=== PATIENT | male | born 1970 | race Caucasian/White ===

== ENCOUNTER 2017-05-09 06:03 | Outpatient (CLI) | payer OTHER ==
[~2017-05-09] VITALS: Ht 182.9 cm; Wt 99.8 kg
[~2017-05-09 06:03] MED LIST: BLOOD PRESSURE
[2017-05-09] MEDS ORDERED: BENA1TAB15 PO (09:58)
== END 2017-05-09 10:02 ==
LOC: PREOP 06:03
PROVIDERS: ATTEND Internal Medicine
DX: Z01.818 Encounter for other preprocedural examination (principal); Z12.11 Encounter for screening for malignant neoplasm of colon; Z80.0 Family history of malignant neoplasm of digestive organs

== ENCOUNTER 2017-05-12 07:54 | Day surgery (SDC) | payer BC, OTHER ==
[~2017-05-12] VITALS: Ht 182.9 cm; Wt 99.8 kg
[~2017-05-12 07:54] MED LIST changes: +BENA1TAB15 PO
--- OUTSIDE RECORDS SUMMARY | 2017-05-12 07:57 | XMS REPORT | Continuity of Care Document ---
Author Author [facility] Organization [facility] Address Unknown Phone Unavailable Allergies Active Description Code Type Severity Reaction Onset Reported/Identified Relationship to Patient Clinical Status Yes No Known Drug Allergies [id number] Drug Allergy Unknown N/ A 11/04/2009 Medications Problems Procedures Results Encounters ACCT No. Visit Date/Time Discharge Status Pt. Type Provider Facility Loc./Unit Complaint [id number] 05/09/2017 06:03:00 2016 10:02:00 DIS Outpatient KOBE ARAGON MD [facility] PREOP COLONOSCOPY [id number] 06/21/2013 08:14:00 2013 23:59:59 CLS Outpatient [id number] 05/12/2017 07:54:00 ACT Outpatient KOBE ARAGON MD [facility] ENDO F/H COLON CA, SCREENING
[2017-05-12] MEDS ORDERED: 1/2 NS IV SOLUTION 1,000 ML IV STA (08:07)
[2017-05-12] MEDS ORDERED: fentaNYL INJECTION 100 MCG/2 ML AMP IVP PRN (08:15)
[2017-05-12] MEDS ORDERED: LIDOCAINE JELLY 2% (XYLOCAINE) 5 ML TUBE MM PRN (08:15)
[2017-05-12] MEDS ORDERED: MIDAZOLAM 2 MG/2 ML (VERSED) VIAL IVP PRN (08:15)
[2017-05-12 08:24] VITALS: BP 142/96
[2017-05-12] MEDS ORDERED: LIDOCAINE JELLY 2% (XYLOCAINE) 5 ML TUBE ONE (09:11)
--- NOTE | 2017-05-12 09:17 | Pre-Op Note & Conscious Sedat ---
Pre-Operative Progress Note H&P Reviewed The H&P was reviewed, patient examined and no changes noted. Date H&P Reviewed: May 12, 2017 Time H&P Reviewed: 09:10 Conscious Sedation Pre-Proced ASA Class: 2 Airway Mallampati Classification: ([place] appropriate class) I. II. III, IV Lungs Heart ASA score ASA 1: a normal healthy patient ASA 2: a patient with a mild systemic disease (mid diabetes, controlled hypertension, obesity ASA 3: a patient with a severe systemic disease that limits activity (angina , COPD, prior Myocardial infarction) ASA 4: a patient with an incapacitating disease that is a constant threat to life (CHF, renal failure) ASA 5: a moribund patient not expected to survive 24 hrs. (ruptured aneurysm) ASA 6: a declared brain patient whose organs are being harvested. For emergent operations, add the letter E after the classification Grade 2 Sedation Plan: Analgesia, Amnesia, Plan communicated to team members, Discussed options with patient/fam, Discussed risks with patient/fam Note The patient is an appropriate candidate to undergo the planned procedure, sedation, and anesthesia. The patient immediately re-assessed prior to indication. KOBE RAAGON MD May 12, 2017 09:17
[2017-05-12 09:50] VITALS: BP 165/102
[2017-05-12 10:45] VITALS: BP 165/102
[2017-05-12 10:50] VITALS: BP 142/101
--- NOTE | 2017-05-14 22:31 | OPERATIVE REPORT ---
DATE OF SERVICE: 05/12/2017 COLONOSCOPY SUMMARY The patient is a 47-year-old white male undergoing screening colonoscopy. He is deemed to be of higher than average risk as there is a family history for colon cancer. In this case being his father diagnosed in his 50s. The patient was placed in the left lateral decubitus position. Prior to undergoing colonoscopy, digital rectal evaluation was performed. Anal sphincterotome was normal and the perianal reflexes intact. No abnormalities, no additional inspection of anal canal or distal rectal vault. The prostate was normal size and anodular on digital inspection. The colonoscope was then inserted into the rectum under direct visualization advanced to the cecum. The cecum was identified by identification of the ileocecal valve and the cecal strap. Photographic documentation was obtained. Careful inspection was made as the colonoscope was withdrawn. The patient tolerated the procedure well. FINDINGS: There was no evidence for internal or external hemorrhoids and the rectum and sigmoid colon were unremarkable. No evidence for diverticular disease was noted. Present in the descending colon was diminutive 4 mm sessile adenomatous polyp. It was photographed and biopsied and ablated, submitted for histopathology with no subsequent blood loss. The splenic flexure, transverse colon, hepatic flexure, ascending colon and cecum were unremarkable. ASSESSMENT: One 4 mm adenomatous appearing polyp was removed via hot forceps without blood loss in the mid descending colon. This was otherwise normal colonoscopy to the cecum. As long as there are no surprises on histopathology report, we will be abdicating repeat surveillance colonoscopy in 5 years considering this patient's family history. Job ID: [id number] DocumentID: [id number] Dictated Date: 05/14/2017 15:32:17 [employer] Complex Attendant Date: 05/14/2017 22:31:19 Dictated By: KOBE ARAGON MD
== END 2017-05-12 10:45 | disposition home or self-care (01) ==
LOC: ENDO 07:54
PROVIDERS: ATTEND Internal Medicine
DX: Z12.11 Encounter for screening for malignant neoplasm of colon (principal); Z80.0 Family history of malignant neoplasm of digestive organs; D12.4 Benign neoplasm of descending colon; I10 Essential (primary) hypertension; E88.81 Metabolic syndrome and other insulin resistance; Z79.899 Other long term (current) drug therapy

== ENCOUNTER → 2017-11-23 | Outpatient (CLI) | payer OTHER ==
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
== END ==
LOC: RAD 13:41
PROVIDERS: ATTEND Nurse Practitioner Family
DX: M25.462 Effusion, left knee (principal); M54.5 Low back pain; M54.6 Pain in thoracic spine; R41.0 Disorientation, unspecified; V89.2XXA Person injured in unspecified motor-vehicle accident, traffic, initial encounter
CPT/HCPCS: 72040; 72070; 73562

== ENCOUNTER → 2018-01-10 | Outpatient (CLI) | payer OTHER ==
--- NOTE | 2018-01-10 15:48 | Diagnostic Imaging Report ---
PROCEDURE: MRI left joint lower extremity without contrast. TECHNIQUE: Multiplanar, multisequence MR imaging of the left knee was performed without contrast. COMPARISON: None available. INDICATION: Left knee pain. Prior ACL reconstruction. FINDINGS: MENISCI Medial meniscus: Normal. Lateral meniscus: Complex tear in the lateral meniscus includes a horizontal cleavage tear in the body along with a near-complete radial free edge tear in the posterior horn near the root insertional fibers. No displaced meniscal fragments. LIGAMENTS ACL: Prior ACL reconstruction. The graft is intact and has a normal taut morphology. There are no features of roof impingement of the graft. The tibial and femoral tunnels are in good position. PCL: Intact. MCL: Intact. LCL: The lateral collateral ligamentous complex is intact. EXTENSOR MECHANISM The extensor mechanism is intact. CARTILAGE Medial compartment: Medial compartment articular cartilage is well preserved without focal high-grade chondromalacia. Lateral compartment: Low-grade partial-thickness articular cartilage loss and fissuring in the weightbearing aspect. There is a single focus of full-thickness chondral fissuring in the lateral tibial plateau with underlying subchondral bone marrow edema. Patellofemoral compartment: The patellofemoral articular cartilage is well preserved without high-grade chondromalacia. BONE No fracture, stress fracture or osteonecrosis. SOFT TISSUE Small knee joint effusion. No Townsend's cyst. IMPRESSION: 1. Complex tear of the lateral meniscus body and posterior horn. No displaced meniscal fragments. 2. ACL reconstruction with intact graft. 3. Focal full-thickness chondral fissuring in the lateral tibial plateau with underlying subchondral bone marrow edema. Dictated by: Dictated on workstation # [id number]
== END ==
LOC: RAD 12:51
PROVIDERS: ATTEND Family Medicine
DX: S83.272A Complex tear of lateral meniscus, current injury, left knee, initial encounter (principal); S86.812A Strain of other muscle(s) and tendon(s) at lower leg level, left leg, initial encounter
CPT/HCPCS: 73721

== ENCOUNTER 2018-02-17 13:01 | Observation (INO) | payer OTHER ==
[~2018-02-17] VITALS: Ht 182.9 cm; Wt 99.9 kg
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
--- OUTSIDE RECORDS SUMMARY | 2018-02-17 13:07 | XMS REPORT ---
Author Author VIC CHING [facility] Address [address] [place] [address] Care Team Providers Care Corporate Fitness Program Coordinator Name Role Phone VIC CHING Unavailable PROBLEMS Unknown Problems ALLERGIES No Information ENCOUNTERS Encounter Location Date Diagnosis [facility] [id number] [address] Apr, [facility] [id number] [address] Sep, [facility] [id number] [address] Sep, [facility] [id number], [place] [address] Sep, Benign essential HTN I10 IMMUNIZATIONS No Known Immunizations SOCIAL HISTORY Never Assessed REASON FOR VISIT Triage JStrasserRN PLAN OF CARE VITAL SIGNS Height 72 in 2017-04-25 Weight 222.2 lbs 2017-04-25 Temperature 97.9 degrees Fahrenheit 2017-04-25 Heart Rate 96 bpm 2017-04-25 Respiratory Rate 20 2017-04-25 BMI 30.13 kg/m2 2017-04-25 Blood pressure systolic 156 mmHg 2017-04-25 Blood pressure diastolic 100 mmHg 2017-04-25 MEDICATIONS Unknown Medications RESULTS No Results PROCEDURES No Known procedures INSTRUCTIONS MEDICATIONS ADMINISTERED No Known Medications MEDICAL (GENERAL) HISTORY Type Description Date Medical History hypertension Surgical History orthopedic surgery Surgical History ACL reconstruction 2011
[2018-02-17] MEDS ORDERED: KETOROLAC 30 MG/ML VIAL ONE (13:12)
[2018-02-17] MEDS ORDERED: SILVER SULFADIAZINE 50 GM CREAM ONE ×2 (13:55)
[2018-02-17] MEDS ORDERED: fentaNYL INJECTION 100 MCG/2 ML AMP ONE (14:13)
[2018-02-17] MEDS ORDERED: diphenhydrAMINE 50 MG/ML INJ (BENADRYL) ONE (14:19)
[2018-02-17] MEDS ORDERED: PROMETHAZINE INJ 25 MG/ML (PHENERGAN) AMP ONE (14:19)
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
[2018-02-17] MEDS ORDERED: fentaNYL INJECTION 100 MCG/2 ML AMP IVP ONE (14:30)
[2018-02-17] MEDS ORDERED: AMLO5TAB7 PO (14:43)
[2018-02-17] MEDS ORDERED: NALT50TA PO (14:44)
[2018-02-17] MEDS ORDERED: HYDROmorphone 2 MG/ML VIAL (DILAUDID) IV PRN ×2 (14:45→17:15)
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
[2018-02-17] MEDS ORDERED: Flexeril (16:22)
[2018-02-17 16:35] VITALS: BP 137/64
[2018-02-17] MEDS: HYDROmorphone 2 MG/ML VIAL (DILAUDID) IV PRN ×3 (17:39→22:29)
[2018-02-17] MEDS: NS IV 1000 ML 1,000 ML IV SCH (17:40)
[2018-02-17 19:40] VITALS: BP 135/81
[2018-02-18] VITALS: BP 135/80
[2018-02-18] MEDS: HYDROmorphone 2 MG/ML VIAL (DILAUDID) IV PRN ×2 (03:57→08:43)
[2018-02-18] MEDS: NS IV 1000 ML 1,000 ML IV SCH (03:57)
[2018-02-18 04:00] VITALS: BP 128/74
[2018-02-18 08:00] VITALS: BP 133/84
[2018-02-18] MEDS ORDERED: HYDR-3812 PO (10:19)
[2018-02-18] MEDS ORDERED: SILV20CR14 TP (10:22)
--- NOTE | 2018-02-18 10:22 | Discharge Inst-Simple/Standard ---
Discharge Inst-Standard Discharge Medications New, Converted or Re-Newed RX: RX on Chart Patient Instructions/Follow Up Plan of Care/Instructions/FU: Please continue dressing changes with Silvadene as Dr Hatch instructed. Please follow up with Dr Gutierrez next week to follow up this hospital stay and with Dr Hall in the wound care clinic. Activity as Tolerated: Yes Discharge Diet: No Restrictions Return to The Hospital For: Worsening pain, fever, purulent drainage from the worse, numbness or tingling in your legs, if you feel you are getting worse. DENIA ESTRADA MD Feb 18, 2018 10:22
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
[2018-02-18] MEDS: HYDROcodone/APAP 5 MG/325 MG (LORTAB) TAB PO PRN ×2 (10:34→14:24)
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
[2018-02-18 14:40] VITALS: BP 133/84
== END 2018-02-18 13:45 | disposition home or self-care (01) ==
LOC: EDUNIT# 13:01 → ER 13:03 → 4TH 15:55 → UNDOADMOB 15:55 → 4TH 16:35 → UNDODISOB 02-18 14:45
PROVIDERS: ADMIT Family Medicine; ATTEND Family Medicine
DX: T24.231A Burn of second degree of right lower leg, initial encounter (principal); T24.132A Burn of first degree of left lower leg, initial encounter; T31.0 Burns involving less than 10% of body surface; F10.11 Alcohol abuse, in remission; I10 Essential (primary) hypertension; M19.91 Primary osteoarthritis, unspecified site; X04.XXXA Exposure to ignition of highly flammable material, initial encounter; Z87.891 Personal history of nicotine dependence
CPT/HCPCS: 96374; 96375; G0378

== ENCOUNTER → 2018-02-23 | Outpatient (CLI) | payer OTHER ==
[~2018-02-23] MED LIST changes: +AMLO5TAB7 PO; +Flexeril; +HYDR-3812 PO; +HYDR25TA4 PO; +NALT50TA PO; +SILV20CR14 TP; +[UNRECOGNIZED DRUG - OTHER] PO
== END ==
LOC: WOUNDCARE 08:02
PROVIDERS: ATTEND Surgery
DX: T24.231A Burn of second degree of right lower leg, initial encounter (principal); X58.XXXA Exposure to other specified factors, initial encounter
CPT/HCPCS: 99214

== ENCOUNTER → 2018-03-02 | Outpatient (CLI) | payer SELFPAY | LOC: WOUNDCARE 08:53 | PROVIDERS: ATTEND Surgery | DX: T24.231A Burn of second degree of right lower leg, initial encounter (principal); X58.XXXA Exposure to other specified factors, initial encounter | CPT/HCPCS: 99212 ==

== ENCOUNTER 2018-03-05 02:44 | Emergency (ER) | payer SELFPAY ==
[~2018-03-05] VITALS: Ht 182.9 cm; Wt 99.9 kg
[~2018-03-05 02:44] MED LIST changes: -HYDR25TA4 PO; -[UNRECOGNIZED DRUG - OTHER] PO
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
[2018-03-05] MEDS ORDERED: NITROGLYCERIN 0.4 MG SL TABS BTL 25'S SL ONE (02:50)
[2018-03-05] MEDS ORDERED: NS IV 1000 ML 1,000 ML ONE (02:50)
[2018-03-05] MEDS ORDERED: ASPIRIN 81 MG CHEW (CHILDREN'S ASA) ONE (02:50)
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
[2018-03-05] MEDS ORDERED: ASPIRIN 81 MG CHEW (CHILDREN'S ASA) PO ONE (03:00)
[2018-03-05] MEDS ORDERED: NITROGLYCERIN 0.4 MG SL TABS BTL 25'S SL PRN (03:00)
--- NOTE | 2018-03-05 03:03 | ED Chest Pain ---
General Chief Complaint: Respiratory Problems Stated Complaint: DIZZY, L ARM NUMB Source: patient, spouse Exam Limitations: no limitations History of Present Illness Date Seen by Provider: Mar 05, 2018 Time Seen by Provider: 02:53 Initial Comments Patient presents to ER by private conveyance with his spouse with chief complaint that about an hour ago he started experiencing some pressure in his chest x-ray was pushing against it. He does not have a primary history of coronary artery disease. Never had a heart attack. No primary family history of coronary disease prior to 60. He quit smoking 13 years ago does not drink the past couple weeks and no history of recreational drug use. He does not have diabetes, hypercholesterolemia, hypothyroidism. He does take some medications for blood pressure. He's having a little shortness of breath. He denies anxiety or acid reflux. He took ibuprofen prior to the chest pain because his feet woke him up hurting from neuropathy. Allergies and Home Medications Allergies Coded Allergies: No Known Drug Allergies (Unverified , 11/04/09) Home Medications Amlodipine Besylate 5 Mg Tablet, 5 MG PO DAILY, (Reported) Hydrochlorothiazide 25 Mg Tablet, 25 MG PO DAILY, (Reported) [Benazpril ] , 40 MG PO DAILY, (Reported) Patient Home Medication List Home Medication List Reviewed: Yes Review of Systems Review of Systems Constitutional: No chills, No diaphoresis EENTM: No Blurred Vision, No Double Vision Respiratory: Denies Cough; Shortness of Air; Denies Wheezing Cardiovascular: See HPI, Chest Pain (chest); Denies Edema Gastrointestinal: Denies Abdomen Distended, Denies Abdominal Pain Genitourinary: Denies Burning, Denies Discharge Musculoskeletal: No back pain, No joint pain Skin: No pruritus, No rash Psychiatric/Neurological: Denies Anxiety, Denies Depressed, Denies Headache Past Otupnqe-Aumtte-Dhlajk Hx Patient Social History Alcohol Use: Past History Alcohol Beverage of Choice: Beer Recreational Drug Use: No Smoking Status: Former Smoker Type Used: Cigars Former Smoker, Quit: Feb 17, 2015 Recent Foreign Travel: No Contact w/Someone Who Travel: No Recent Hopitalizations: No Immunizations Up To Date Tetanus Booster (TDap): More than 5yrs Seasonal Allergies Seasonal Allergies: Yes Past Medical History Surgeries: Yes (right arm fx, R knee acl x2) Orthopedic Respiratory: No Currently Using CPAP: No Currently Using BIPAP: No Cardiac: Yes Hypertension Neurological: No Genitourinary: No Gastrointestinal: No Musculoskeletal: No Arthritis Endocrine: No HEENT: No Loss of Vision: Denies Hearing Impairment: Denies Cancer: No Psychosocial: No Integumentary: No Blood Disorders: No Family Medical History Alcoholism 19 FATHER Colon cancer 19 FATHER Headache disorder 19 MOTHER Myocardial infarction 19 FATHER Neoplasm 19 FATHER 19 MOTHER Heart Disease, Cancer Physical Exam Vital Signs Vital Signs - First Documented 03/05/18 02:47 Temp 97.4 Pulse 99 Resp 22 B/P (MAP) 126/72 (90) Capillary Refill : Height, Weight, BMI Height: 6'0.00" Weight: 220lbs. 5.0oz. 99.991031ps; 29.6 BMI Method:Stated General Appearance: WD/WN, Anxious HEENT: PERRL/EOMI, Pharynx Normal, Moist Mucous Membranes Neck: Full Range of Motion, Normal Inspection, Non Tender, Supple Respiratory: Chest Non Tender, Lungs Clear, Normal Breath Sounds, No Accessory Muscle Use, No Respiratory Distress, Other (no instrument lens generator muscle use, retractions , increased work of breathing evident on exam.) Cardiovascular: Regular Rate, Rhythm, No Edema, Normal Peripheral Pulses Gastrointestinal: Normal Bowel Sounds, No Pulsatile Mass, Non Tender, Soft Extremity: Normal Capillary Refill, Normal Inspection, Non Tender, No Calf Tenderness, No Pedal Edema Neurologic/Psychiatric: Alert, Oriented x3 Progress/Results/Core Measures Results/Orders Lab Results Laboratory Tests Test 03/05/18 02:50 03/05/18 04:24 Range/Units White Blood Count 11.0 4.3-11.0 10^3/uL Red Blood Count 4.42 4.35-5.85 10^6/uL Hemoglobin 14.6 13.3-17.7 G/DL Hematocrit 38 L 40-54 % Mean Corpuscular Volume 87 80-99 FL Mean Corpuscular Hemoglobin 33 25-34 PG Mean Corpuscular Hemoglobin Concent 38 H 32-36 G/DL Red Cell Distribution Width 12.0 10.0-14.5 % Platelet Count 372 130-400 10^3/uL Mean Platelet Volume 10.4 7.4-10.4 FL Neutrophils (%) (Auto) 39 L 42-75 % Lymphocytes (%) (Auto) 53 H 12-44 % Monocytes (%) (Auto) 4 0-12 % Eosinophils (%) (Auto) 3 0-10 % Basophils (%) (Auto) 1 0-10 % Neutrophils # (Auto) 4.3 1.8-7.8 X 10^3 Lymphocytes # (Auto) 5.9 H 1.0-4.0 X 10^3 Monocytes # (Auto) 0.5 0.0-1.0 X 10^3 Eosinophils # (Auto) 0.4 H 0.0-0.3 10^3/uL Basophils # (Auto) 0.1 0.0-0.1 10^3/uL Prothrombin Time 14.2 12.2-14.7 SEC INR Comment 1.1 0.8-1.4 Activated Partial Thromboplast Time 31 24-35 SEC D-Dimer 0.40 0.00-0.49 UG/ML Sodium Level 136 135-145 MMOL/L Potassium Level 3.1 L 3.6-5.0 MMOL/L Chloride Level 97 L 98-107 MMOL/L Carbon Dioxide Level 21 21-32 MMOL/L Anion Gap 18 H 5-14 MMOL/L Blood Urea Nitrogen 15 7-18 MG/DL Creatinine 1.20 0.60-1.30 MG/DL Estimat Glomerular Filtration Rate > 60 BUN/Creatinine Ratio 13 Glucose Level 234 H 70-105 MG/DL Calcium Level 9.8 8.5-10.1 MG/DL Corrected Calcium 9.6 8.5-10.1 MG/DL Magnesium Level 2.0 1.8-2.4 MG/DL Total Bilirubin 0.6 0.1-1.0 MG/DL Aspartate Amino Transf (AST/SGOT) 18 5-34 U/L Alanine Aminotransferase (ALT/SGPT) 41 0-55 U/L Alkaline Phosphatase 74 40-136 U/L Myoglobin 53.0 10.0-92.0 NG/ML Troponin I < 0.30 < 0.30 <0.30 NG/ML Total Protein 7.0 6.4-8.2 GM/DL Albumin 4.3 3.2-4.5 GM/DL My Orders Orders - [place] Nitroglycerin 0.4 Mg Btl 25's (Nitrostat (03/05/18 02:50) Aspirin Chewable Tablet (Baby Aspirin Ch (03/05/18 02:50) Ns Iv 1000 Ml (Sodium Chloride 0.9%) (03/05/18 02:50) Cbc With Automated Diff (03/05/18 02:59) Magnesium (03/05/18 02:59) Chest 1 View, Ap/Pa Only (03/05/18 02:59) Ekg Tracing (03/05/18 02:59) Cardiac Profile 1 (03/05/18 02:59) Comprehensive Metabolic Panel (03/05/18 02:59) Myoglobin Serum (03/05/18 02:59) Protime With Inr (03/05/18 02:59) Partial Thromboplastin Time (03/05/18 02:59) O2 (03/05/18 02:59) Monitor-Rhythm Ecg Trace Only (03/05/18 02:59) Lipid Panel (03/06/18 06:00) Aspirin Chewable Tablet (Baby Aspirin Ch (03/05/18 03:00) Nitroglycerin 0.4 Mg Btl 25's (Nitrostat (03/05/18 03:00) Saline Lock/Iv-Start (03/05/18 02:59) Fibrin Degradation Products (03/05/18 02:59) Troponin I (03/05/18 04:18) Orthostatic Vital Signs (Adult (03/05/18 04:19) Saline Lock/Iv-Start (03/05/18 04:27) Ns Iv 1000 Ml (Sodium Chloride 0.9%) (03/05/18 04:27) Medications Given in ED Current Medications Medications Dose Ordered Sig/Alejandra Route Start Time Stop Time Status Last Admin Dose Admin Aspirin 324 mg ONCE ONCE PO 03/05/18 03:00 03/05/18 03:01 DC 03/05/18 02:55 324 MG Nitroglycerin 0.4 mg UD PRN SL 03/05/18 03:00 03/05/18 02:57 0.4 MG Sodium Chloride 1,000 ml @ ud STK-MED ONCE .ROUTE 03/05/18 02:50 03/05/18 02:55 DC 03/05/18 02:55 999 MLS/HR Vital Signs/I&O 03/05/18 03/05/18 02:47 04:21 Temp 97.4 Pulse 99 87 104 Resp 22 B/P (MAP) 126/72 (90) 101/69 (80) 109/69 (82) Progress Progress Note #1: Time: 04:03 Progress Note His chief complaint of shortness of breath is not supported by his vital signs or physical exam. This chest pressure is reproducible on palpation of the chest. Is also reproduced on deep inspiration making chest wall pain or pleurisy more likely. We will get a delta troponin to rule out cardiac. The d- dimer was negative. ED ACS 15 points. Low risk by the EDACS Score. If the patient also has: (1) EKG without new ischemic changes and (2) negative initial and 2-hour troponins, then this patient is safe for discharge to early outpatient follow-up investigation (or proceed to earlier inpatient testing). If EKG with ischemic changes or positive troponin, they are not low risk and require normal risk stratification. Progress Note #2: Time: 05:26 Progress Note Liter fluids the patient was still complaining of dizziness so we used get a set of orthostatic vital signs which revealed the patient to have some increased heart rate on standing. Gave him another liter fluids and repeated the orthostatics and they were normalized. He says his symptoms of dizziness is improved on standing and is no longer pronounced. And allow him to go home and follow up with primary care. Initial ECG Impression Date: Mar 05, 2018 Initial ECG Impression Time: 02:48 Initial ECG Rate: 106 Initial ECG Rhythm: S.Tach Initial ECG Intervals: Normal Initial ECG Impression: Normal, Nonspecific Changes Comment Sinus tachycardia without ST elevation or depression. Diagnostic Imaging Diagonstic Imaging: Xray Plain Films/CT/US/NM/MRI: chest (1v) Comments No acute cardiopulmonary processes noted. Reviewed: Reviewed by Me Departure Impression Primary Impression: Costochondritis, acute Additional Impression: Orthostatic hypotension Disposition: 01 HOME, SELF-CARE Condition: Stable Departure-Patient Inst. Decision time for Depature: 05:26 Referrals: KOBE ARAGON MD (PCP) Primary Care Physician Patient Instructions: Costochondritis (DC), Orthostatic Hypotension (DC) Add. Discharge Instructions: You can use ibuprofen 2 tablets every 6-8 hours as needed for chest wall pain. You can also use Tylenol 1000 mg every 8 hours. If your chest wall pain is getting worse you should stop using the ibuprofen follow-up with your doctor. Otherwise plan to see your primary care doctor about this in the next 1-2 weeks for follow-up. All discharge instructions reviewed with patient and/or family. Voiced understanding. Work/School Note: Work Release Form Date Seen in the Emergency Department: Mar 05, 2018 Return to Work: Mar 06, 2018 Restrictions: No Restrictions Copy Copies To 1: KOBE ARAGON MD, TITUS J Mar 05, 2018 03:03
[2018-03-05 03:09] LABS: BASOPHILS # (AUTO) 0.1 10^3/uL (0.0-0.1); BASOPHILS % (AUTO) 1 % (0-10); EOSINOPHILS # (AUTO) 0.4 10^3/uL (0.0-0.3); EOSINOPHILS % (AUTO) 3 % (0-10); HEMATOCRIT 38 % (40-54); HEMOGLOBIN 14.6 G/DL (13.3-17.7); LYMPHOCYTES # (AUTO) 5.9 X 10^3 (1.0-4.0); LYMPHOCYTES % (AUTO) 53 % (12-44); MEAN CORPUSCULAR HEMOGLOBIN 33 PG (25-34); MEAN CORPUSCULAR HGB CONC 38 G/DL (32-36); MEAN CORPUSCULAR VOLUME 87 FL (80-99); MEAN PLATELET VOLUME 10.4 FL (7.4-10.4); MONOCYTES # (AUTO) 0.5 X 10^3 (0.0-1.0); MONOCYTES % (AUTO) 4 % (0-12); NEUTROPHILS # (AUTO) 4.3 X 10^3 (1.8-7.8); NEUTROPHILS % (AUTO) 39 % (42-75); PLATELET COUNT 372 10^3/uL (130-400); RED BLOOD COUNT 4.42 10^6/uL (4.35-5.85)
[2018-03-05 03:16] LABS: FIBRIN DEGRADATION PRODUCTS 0.4 UG/ML (0.00-0.49); INR 1.1 (0.8-1.4); PROTHROMBIN TIME PATIENT 14.2 SEC (12.2-14.7)
[2018-03-05 03:23] LABS: ALANINE AMINOTRANSFERASE 41 U/L (0-55); ALBUMIN 4.3 GM/DL (3.2-4.5); ALKALINE PHOSPHATASE 74 U/L (40-136); BILIRUBIN,TOTAL 0.6 MG/DL (0.1-1.0); BUN/CREATININE RATIO 13; CALCIUM 9.8 MG/DL (8.5-10.1); CARBON DIOXIDE 21 MMOL/L (21-32); CHLORIDE 97 MMOL/L (98-107); GFR ESTIMATED > 60; GLUCOSE 234 MG/DL (70-105); POTASSIUM 3.1 MMOL/L (3.6-5.0); SODIUM 136 MMOL/L (135-145)
[2018-03-05 04:21] VITALS: BP_SYST 101; BP_SYST 109; BP_DIAS 69
[2018-03-05] MEDS ORDERED: NS IV 1000 ML 1,000 ML IV SCH (04:27)
[2018-03-05] MEDS ORDERED: [UNRECOGNIZED DRUG - OTHER] PO (04:52)
[2018-03-05] MEDS ORDERED: HYDR25TA4 PO (04:54)
[2018-03-05 05:21] VITALS: BP_SYST 107; BP_SYST 115; BP_DIAS 78; BP_DIAS 88
[2018-03-05 05:39] VITALS: BP 112/76
--- NOTE | 2018-03-05 07:13 | Diagnostic Imaging Report ---
INDICATION: Shortness of air FINDINGS: The lungs are clear. The heart and vessels normal. There is no effusion or pneumothorax. IMPRESSION: No acute appearing abnormality Dictated by: Dictated on workstation # [id number]
== END 2018-03-05 05:40 | disposition home or self-care (01) ==
LOC: EDUNIT# 02:44 → ER 02:45
DX: M94.0 Chondrocostal junction syndrome [Tietze] (principal); R06.02 Shortness of breath; I95.1 Orthostatic hypotension; I10 Essential (primary) hypertension; Z82.49 Family history of ischemic heart disease and other diseases of the circulatory system; Z80.0 Family history of malignant neoplasm of digestive organs; Z87.891 Personal history of nicotine dependence
CPT/HCPCS: 36415; 71045; 80053; 83735; 83874; 84484; 85025; 85379; 85610; 85730; 93005; 93041; 96360

== ENCOUNTER → 2018-03-09 | Outpatient (CLI) | payer SELFPAY ==
[~2018-03-09] MED LIST changes: +HYDR25TA4 PO; +[UNRECOGNIZED DRUG - OTHER] PO
== END ==
LOC: WOUNDCARE 08:50
PROVIDERS: ATTEND Surgery
DX: T24.231A Burn of second degree of right lower leg, initial encounter (principal); X58.XXXA Exposure to other specified factors, initial encounter
CPT/HCPCS: 99212

== ENCOUNTER 2021-01-22 05:40 | Outpatient (CLI) | payer OTHER ==
[~2021-01-22] VITALS: Ht 182.9 cm; Wt 90.8 kg
[~2021-01-22 05:40] MED LIST changes: +ACHD5005 PO; +AMLO-250 PO; -AMLO5TAB7 PO; -HYDR-3812 PO
[2021-01-22] MEDS ORDERED: BENA40TA5 PO (12:04)
== END 2021-01-22 12:27 | disposition home or self-care (01) ==
LOC: PREOP 05:40
PROVIDERS: ATTEND Internal Medicine
DX: Z01.818 Encounter for other preprocedural examination (principal)

== ENCOUNTER 2021-01-29 08:53 | Day surgery (SDC) | payer OTHER ==
--- NOTE | 2021-01-22 06:50 | HISTORY AND PHYSICAL ---
DATE OF SERVICE: COLONOSCOPY HISTORY AND PHYSICAL HISTORY OF PRESENT ILLNESS: The patient has a 50-year-old white male being set up for surveillance colonoscopy. Over the past 6 weeks, he has had change in bowel habit with intermittent diarrhea without cramping. There has been some urgency. He has had no recent antibiotic use. He does have a history of type 2 diabetes mellitus recently diagnosed and in addition, there is a family history for colon cancer. The patient denies any change in weight, has been cutting back on carbohydrates and increasing fruit intake since recent diagnosis of diabetes with a goal of trying to control this through diet. His A1c on the 12/29/2020 was 7.3, which was his qualifying diagnosis. PHYSICAL EXAMINATION: GENERAL: Reveals a white male, appeared to be in no acute distress. VITAL SIGNS: Blood pressure 120/80, weight 207.6 pounds stable from 2 months ago. HEENT: Unremarkable. Sclerae nonicteric. CHEST: Clear. CARDIOVASCULAR: Regular rate and rhythm without murmur, S3 or S4. ABDOMEN: Soft, supple without mass, organomegaly or tenderness. EXTREMITIES: Reveal no cyanosis, clubbing or edema. ASSESSMENT AND PLAN: 1. The patient is set up on 01/29/2021 for surveillance colonoscopy due to recent bowel habit change, and family history for colon cancer. Prep instructions were given, and questions were answered. 2. Type 2 diabetes. Discussed the importance of portion control or regular physical activity and he is scheduled to return for repeat basic metabolic panel and A1c in March as well as a flu shot. Job ID: [id number] DocumentID: [id number] Dictated Date: 01/20/2021 14:34:06 Knocker Off Date: 01/20/2021 15:12:10 Dictated By: KOBE ARAGON MD
[~2021-01-29] VITALS: Ht 82.9 cm; Wt 90.8 kg
[~2021-01-29 08:53] MED LIST changes: +BENA40TA5 PO
[2021-01-29] MEDS ORDERED: LACTATED RINGERS 1,000 ML IV STA (09:03)
[2021-01-29 09:10] VITALS: BP 138/88
[2021-01-29] MEDS ORDERED: LACTATED RINGERS 1,000 ML IV ONE (09:10)
[2021-01-29] MEDS ORDERED: LIDOCAINE JELLY 2% 6 ML SYRINGE MM PRN (09:15)
[2021-01-29] MEDS ORDERED: PROPOFOL INJECTION 50 ML IV ONE (10:11)
[2021-01-29] MEDS ORDERED: proPOfol 200 MG/20 ML (DIPRIVAN) VIAL IV ONE (10:40)
[2021-01-29 10:55] VITALS: BP 101/61
--- NOTE | 2021-01-29 10:55 | Pre-Op Note & Conscious Sedat ---
Pre-Operative Progress Note H&P Reviewed The H&P was reviewed, patient examined and no changes noted. Date H&P Reviewed: Jan 29, 2021 Time H&P Reviewed: 10:00 Conscious Sedation Pre-Proced ASA Score 2 For ASA 3 and 4: Consider anesthesia and medical clearance. Also, for patients with a history of failed moderate sedation consider anesthesia. Airway Lungs Heart ASA score ASA 1: a normal healthy patient ASA 2: a patient with a mild systemic disease (mid diabetes, controlled hypertension, obesity ASA 3: a patient with a severe systemic disease that limits activity (angina, COPD, prior Myocardial infarction) ASA 4: a patient with an incapacitating disease that is a constant threat to life (CHF, renal failure) ASA 5: a moribund patient not expected to survive 24 hrs. (ruptured aneurysm) ASA 6: a declared brain- patient whose organs are being harvested. For emergent operations, add the letter E after the classification Mallampati Classification Grade 2 Sedation Plan Analgesia, Amnesia, Plan communicated to team members, Discussed options with patient/fam, Discussed risks with patient/fam The patient is an appropriate candidate to undergo the planned procedure, sedation, and anesthesia. The patient immediately re-assessed prior to indication. KOBE ARAGON MD Jan 29, 2021 10:55
[2021-01-29 11:00] VITALS: BP 108/72
[2021-01-29 11:30] VITALS: BP 124/81
[2021-01-29 11:35] VITALS: BP 124/81
--- NOTE | 2021-01-29 11:51 | Anesthesia-General Post-Op ---
MAC Patient Condition Mental Status/LOC: Same as Preop Cardiovascular: Satisfactory Nausea/Vomiting: Absent Respiratory: Satisfactory Pain: Controlled Complications: Absent Post Op Complications Complications None Follow Up Care/Instructions Patient Instructions None needed. Anesthesiology Discharge Order Discharge Order Patient is doing well, no complaints, stable vital signs, no apparent adverse anesthesia problems. No complications reported per nursing. JAIRO FERRARI CRNA Jan 29, 2021 11:51
--- NOTE | 2021-01-29 14:21 | OPERATIVE REPORT ---
DATE OF SERVICE: COLONOSCOPY SUMMARY INDICATION FOR THE PROCEDURE: Diarrhea. PRIMARY CARE PROVIDER: Kobe Aragon MD. DESCRIPTION OF PROCEDURE: The patient was placed in the left lateral decubitus position. Prior to undergoing a colonoscopy, digital rectal evaluation was performed. Anal sphincter tone was normal. Perianal reflexes were intact. The prostate is mildly enlarged and anodular on digital inspection. The colonoscope was then inserted into the rectum and under direct visualization advanced to the cecum. The cecum was identified by identification of the ileocecal valve and cecal strap. Photographic documentation was obtained. A careful inspection was made as the colonoscope was withdrawn. Quality of prep was good. FINDINGS: There was no evidence for internal or external hemorrhoids. There was somewhat patchy erythema throughout the entire colon, a little more prominent in the ascending colon and cecum without evidence for ulceration. One diminutive hyperplastic-appearing polyp was noted in the mid rectum that was biopsied and ablated and submitted for histopathology. No evidence for diverticular disease was noted. Biopsies were obtained from the ascending colon, transverse colon and rectum and submitted for histopathology. ASSESSMENT: Findings are compatible with colitis present throughout the colon, but most prominent in the ascending colon and cecum with no gross evidence for terminal ileal involvement. Findings were not typical for ulcerative colitis. Biopsies were obtained and submitted for histopathology with further recommendations pending histopathology report. Job ID: [id number] DocumentID: [id number] Dictated Date: 01/29/2021 11:51:58 Care Director Rn Date: 01/29/2021 14:19:57 Dictated By: KOBE ARAGON MD
== END 2021-01-29 11:35 | disposition home or self-care (01) ==
LOC: ENDO 08:53
PROVIDERS: ATTEND Internal Medicine
DX: D12.8 Benign neoplasm of rectum (principal); K63.89 Other specified diseases of intestine; R19.7 Diarrhea, unspecified; I10 Essential (primary) hypertension; E11.9 Type 2 diabetes mellitus without complications; Z79.899 Other long term (current) drug therapy